=== PATIENT | male | born 1965 | race Caucasian/White ===

== ENCOUNTER 2022-01-01 02:38 | Inpatient (IN) | payer MEDICARE, MEDICAID, SELFPAY ==
[2022-01-01] VITALS (130 sets, daily range): BP systolic 94–144; BP diastolic 56–86; PULSE 63–89; RESP 9–31; TEMP 36.4–37.1; O2SAT 90–98; BMI 34.4; BMI 39.7
--- NOTE | 2022-01-01 | USR_ITS ---
PROCEDURE INFORMATION: Exam: US Duplex Left Lower Extremity Arteries Or Arterial Bypass Grafts Exam date and time: 01/01/2022 9:13 AM Age: 56 years old Clinical indication: Screening exam; Prior surgery; Surgery date: 6+ months; Surgery type: There is a large scar at the location of the patients left mid to distal thigh. Patient HX: Poor history information; Additional info: Check for occlusion TECHNIQUE: Imaging protocol: Left Real-time duplex scan of the arteries or arterial bypass grafts of the left lower extremity with 2-D murray scale, color Doppler flow and spectral waveform analysis. Images documented and saved. Total images: [id number] COMPARISON: [place] [id number] 01/01/2022 8:33 AM FINDINGS: Left common femoral artery: No occlusion or significant stenosis. Normal waveform. Left superficial femoral artery: No occlusion or significant stenosis. Normal waveform. In proximal SFA. Mid SFA with significant decrease in arterial flow by color Doppler with peak systolic velocity measured at 19 cm/s and mono phasic waveform. Distal SFA showing near complete thrombosis of femoral popliteal graft. Graft subsequently becomes occluded distally. [place] SFA not visualized. Left popliteal artery: Distal anastomosis of graft with popliteal artery not well seen. Biphasic waveform demonstrated within popliteal artery with marked elevation of peak systolic velocity of 127 cm/s suggesting reconstitution of popliteal artery through nonvisualized collaterals or recanalized nonvisualized [place] distal SFA and hemodynamically significant stenosis present. Left calf/foot arteries: No occlusion or significant stenosis in the visualized arteries. Monophasic waveforms. Dorsalis pedis artery is patent. US/[place] [id number] IMPRESSION: 1. Occluded left SFA to popliteal artery graft. 2. [place] distal SFA not visualized. 3. Popliteal artery demonstrating biphasic and elevated peak systolic velocity suggesting reconstitution of popliteal artery either through nonvisualized recannulated [place] SFA or collaterals with hemodynamically significant stenosis.
--- NOTE | 2022-01-01 02:42 | ECG_ITS ---
Test Date: 2022-01-01 Pat Name: Casper Tuttle Department: Room: Gender: Male Ring Stamper: : 1965 Requested By: Gary Vazquez Order Number: [id number] Jame MD: Tobi Berger M.D. Measurements Intervals [place] Rate: 73 P: 50 [place]: 201 QRS: 252 QRSD: 182 T: 23 QT: 519 QTc: 573 Interpretive Statements SINUS RHYTHM WITH FREQUENT SUPRAVENTRICULAR PREMATURE COMPLEXES POSSIBLE LEFT ATRIAL ENLARGEMENT [-0.1mV P WAVE IN V1/V2] RIGHT AXIS DEVIATION [QRS AXIS > 100] RIGHT BUNDLE BRANCH BLOCK [120+ ms QRS DURATION, UPRIGHT V1, 40+ ms S IN I/aVL/V4/V5/V6] POSSIBLE ANTERIOR MYOCARDIAL INFARCTION , OF INDETERMINATE AGE [30 ms Q WAVE IN V3/V4, OR R < 0.2 mV IN V4] No previous ECG available for comparison Electronically Signed On 01-01-2022 20:32:29 CDT by Tobi Berger M.D. [email or web address]
--- NOTE | 2022-01-01 02:46 | ED_ITS ---
Documented by User: Gary Vazquez MD 01/15/22 16:38 HPI - SOB/Dyspnea General: Chief Complaint: Shortness of Breath/Dyspnea Stated Complaint: SOB Time Seen by Provider: 01/01/22 02:45 Limitations: altered mental status History of Present Illness: HPI Narrative: Mr. Tuttle is a 56-year-old gentleman with significant past medical history of paranoid schizophrenia, schizoaffective disorder, hypertension, COPD, GERD, unspecified muscular disorder who presents to the emergency department due to respiratory symptoms. Apparently over the past few days patient has had increased shortness of breath and has been attempted to be diuresed however he drinks a lot of water. Last night he was noted to have hypoxemia and difficulty waking with intermittent confusion. He was given an albuterol treatment and [place] six and upon EMS arrival they found the patient in no distress. He did require supplemental oxygen which is possibly normal for him. Patient himself is a somewhat poor historian and somewhat difficult to understand though he is fully oriented. No other specific changes in health, exacerbating, or alleviating factors identified. Review of Systems General: Reports: ROS unobtainable due to mental status PFSH ED PFSH: Medical History (Updated 01/04/22 @ 00:02 by ) COPD (chronic obstructive pulmonary disease) Hypertension Obesity Psychiatric disorder Social History (Updated 01/01/22 @ 06:11 by Harpreet Berry MD) Smoking and tobacco status: current every day smoker Physical Exam Const: COMMON NORMALS: alert GENERAL APPEARANCE: cooperative, well developed and ill appearing HENMT: COMMON NORMALS: normocephalic and atraumatic HEAD & SCALP: normocephalic and atraumatic Eye: COMMON NORMALS: conjunctivae normal CONJUNCTIVA: Yes conjunctivae normal SCLERA: sclerae normal Neck/C-Spine: COMMON NORMALS: supple GENERAL: Yes trachea midline Resp: COMMON NORMALS: normal respiratory effort EFFORT & INSPECTION: Yes able to speak in complete sentences AUSCULTATION: diminished lung sounds Cardio: COMMON NORMALS: regular rate and regular rhythm RATE: regular rate RHYTHM: regular rhythm GI: COMMON NORMALS: Soft to palpation PALPATION: Yes Soft to palpation and No Tenderness to palpation present (GI) Extremity: GENERAL: Yes normal exam except as noted and Yes edema Neuro: COMMON NORMALS: moves all extremities SENSORIUM/ORIENTATION: Yes alert and No Orientation impaired Psych: COMMON NORMALS: mental status grossly normal and Normal thought process present THOUGHT PROCESS: Normal thought process present Course ED course: - Patient was seen and evaluated by me at bedside - Patient placed on cardiac monitors, IV access obtained - Initial evaluation notable for exam as above. No focal neurologic deficits. - Labs and xrays personally interpreted by me. EKG shows sinus rhythm with right bundle branch block - Labs notable for no leukocytosis, intervascular hemoconcentration. Metabolic panel with intravascular dehydration and evidence of metabolic stress likely secondary to overdiuresis. No evidence of urinary tract infection COVID studies negative. - Imaging notable for pulmonary vascular congestion on chest x-ray. Negative head CT. CTA chest with likely interstitial lung disease and pulmonary vascular congestion. - Upon serial reexamination after treatment the patient was similar - Based on patient history, evaluation, and testing as interpreted the most likely cause of the patient's condition is metabolic derangement in the context of overdiuresis with continued evidence of peripheral edema and pulmonary vasc ular congestion. - The results of ED evaluation were discussed with the patient including plan for admission due to requirement for level of care not available if discharged to prevent significant worsening/deterioration. - Admitting service was contacted and Dr Berry with the hospitalist service agreed to admit the patient - Patient was admitted without further deterioration or significant events. Note: Click bubbles or prepopulated prince in note writing are used for assistance with data collection and billing and are inherently more limited than narrative and other text portions of this note. Please use narrative for additional clinical history and defer to narrative/free test for any case of contradictory information. If information appears in only free text or click bubble it should be considered present or absent as reported. Please contact note entry writer for clarifications of clinical information or contradictory information. MDM is a brief summary, contradictory or erroneous seeming information should be clarified and full note should be reviewed. Vital Signs: Vital signs: Vital Signs Temperature 98.5 F 01/03/22 15:20 Pulse Rate 85 01/03/22 15:20 Respiratory Rate 16 01/03/22 15:20 Blood Pressure 116/74 01/03/22 15:20 Pulse Oximetry 89 L 01/03/22 15:20 Oxygen Delivery Nd thod 01/03/22 12:00 Oxygen Flow Rate 4 01/03/22 11:32 Fraction of Inspir ed Oxygen 50 01/02/22 03:15 MDM - SOB/Dyspnea Medical Decision Making 56-year-old gentleman presenting with mental status change and respiratory status change. Patient recently had switch in medications for diuresis and most likely etiology of patient's symptoms is intravascular dehydration with continued evidence of fluid overload. Admitted for further management. I did not participipate in care of pt Medical Records I reviewed the patient's medical records. Lab Data I reviewed the patient's lab results. : 01/03/22 04:28 01/03/22 04:28 Labs/Radiology: Radiology Impressions Duplex Scan Lower Extremity Artery 01/01/22 00:00 IMPRESSION: 1. Occluded left SFA to popliteal artery graft. 2. [place] distal SFA not visualized. 3. Popliteal artery demonstrating biphasic and elevated peak systolic velocity suggesting reconstitution of popliteal artery either through nonvisualized [place] SFA or collaterals with hemodynamically significant stenosis. Chest X-Ray 01/01/22 02:52 IMPRESSION: 1. Indistinct pulmonary vasculature, patchy interstitial opacities in the right hemithorax and left lower hemithorax , findings that may represent pulmonary edema. Patchy interstitial pneumonitis cannot be entirely excluded. 2. There are some strandy opacities present in the lower hemithoraces that may represent atelectasis as well. Head CT 01/01/22 03:19 IMPRESSION: No acute intracranial abnormality. Chest CTA 01/01/22 03:43 IMPRESSION: 1. No lobar or larger pulmonary artery embolism identified. Limited quality examination. 2. Pulmonary vascular congestion. 3. Honeycombing noted posteriorly in the lower lobes and within the upper lobes right greater than left suggesting pulmonary fibrosis. Ground-glass opacity present in these areas may represent atelectasis, edema, and or pneumonia. This later finding is most pronounced in the right upper lobe. Venous Duplex 01/01/22 06:05 IMPRESSION: No evidence of deep vein thrombosis. Laboratory Results WBC 4.6 10^3/uL (4.0-10.0) 01/01/22 02:44 RBC 5.17 10^6/uL (4.1-5.3) 01/01/22 02:44 Hgb 17.4 g/dL (11.7-16.6) H 01/01/22 02:44 Hct 48.8 % (42.0-52.0) 01/01/22 02:44 MCV 94.4 fl (80-94) H 01/01/22 02:44 MCH 33.7 pg (28.0-34.0) 01/01/22 02:44 MCHC 35.7 g/dL (30.0-36.0) 01/01/22 02:44 RDW 14.9 % (12.1-15.1) 01/01/22 02:44 Plt Count 149 10^3/cmm (130-400) 01/01/22 02:44 MPV 9.4 fL (7.4-10.4) 01/01/22 02:44 Neut % (Auto) 62.1 % 01/01/22 02:44 Lymph % (Auto) 19.2 % 01/01/22 02:44 Scott % (Auto) 16.6 % 01/01/22 02:44 Eos % (Auto) 1.5 % 01/01/22 02:44 Baso % (Auto) 0.2 % 01/01/22 02:44 Neut # (Auto) 2.85 10^3/uL (1.8-7.7) 01/01/22 02:44 Lymph # (Auto) 0.9 10^3/uL (0.8-4.8) 01/01/22 02:44 Scott # (Auto) 0.8 10^3/uL (0.2-0.9) 01/01/22 02:44 Eos # (Auto) 0.1 10^3/uL (0.0-0.8) 01/01/22 02:44 Baso # (Auto) 0.0 10^3/uL (0.0-0.1) 01/01/22 02:44 Nucleated RBC % (auto) 0 % 01/01/22 02:44 Nucleated RBCs # 0.0 /100WBC 01/01/22 02:44 Specimen Type Arterial 01/01/22 02:58 Sample Site Radial, left 01/01/22 02:58 ABG pH 7.40 (7.35-7.45) 01/01/22 02:58 ABG pCO2 80.5 mmHg (35-45) H* 01/01/22 02:58 ABG pO2 53.3 mmHg (80.0-100.0) L 01/01/22 02:58 ABG HCO3 50.1 mmol/L (22-26) H 01/01/22 02:58 ABG Base Excess 19.3 mmol/L (-2.0-2.0) H 01/01/22 02:58 Josh Test Pos 01/01/22 02:58 Hematocrit 51.9 % (42-52) 01/01/22 02:58 Hgb O2 Saturation 80.7 % (95-100) L 01/01/22 02:58 Carboxyhemoglobin 7.7 %THgb (0.4-20.1) 01/01/22 02:58 Methemoglobin 0.4 % (0.4-1.5) 01/01/22 02:58 Total Hemoglobin 16.9 g/dL (14-18) 01/01/22 02:58 O2 Delivery Device Nc 01/01/22 02:58 O2 Liters/Min 2.0 % 01/01/22 02:58 Wellness Nurse ID [place] 01/01/22 02:58 Sodium 120 mmol/L (136-145) L 01/01/22 05:05 Potassium 3.1 mmol/L (3.5-5.1) L 01/01/22 02:44 Chloride 69 mmol/L (98-107) L 01/01/22 02:44 Carbon Dioxide 43 mmol/L (22-29) H* 01/01/22 02:44 Anion Gap 10.1 (5-19) 01/01/22 02:44 BUN 9 mg/dL (6-20) 01/01/22 02:44 Creatinine 0.5 mg/dL (0.7-1.2) L 01/01/22 02:44 GFR Calculation 172.0 mL/min (90-130) H 01/01/22 02:44 Glucose 97 mg/dL (65-115) 01/01/22 02:44 Estimat Average Glucose 114 01/01/22 02:44 Hemoglobin A1c 5.6 % (4.0-6.0) 01/01/22 02:44 Calculated Osmolality 247 mOsm/kg (285-295) L 01/01/22 02:44 Lactic Acid 1.2 mmol/L (0.5-2.2) 01/01/22 02:44 Calcium 9.3 mg/dL (8.5-10.5) 01/01/22 02:44 Magnesium 1.6 mg/dL (1.7-2.3) L 01/01/22 02:44 Total Bilirubin 0.7 mg/dL (0.15-1.2) 01/01/22 02:44 AST 104 U/L (0-40) H 01/01/22 02:44 ALT 159 U/L (0-41) H 01/01/22 02:44 Alkaline Phosphatase 86 IU/L (40-130) 01/01/22 02:44 Troponin T Baseline 16 ng/L (0-15) H 01/01/22 02:44 Troponin T 120 Minute 14.26 ng/L (0-15) 01/01/22 05:05 Delta Troponin T -1.74 ABS# (0-10) L 01/01/22 05:05 C-Reactive Protein 5.6 mg/L (0.0-4.9) H 01/01/22 05:05 NT-Pro-B Natriuret Pep 76 pg/mL (0-125) 01/01/22 02:44 Total Protein 7.4 g/dL (6.6-8.7) 01/01/22 02:44 Albumin 4.1 g/dL (3.5-5.2) 01/01/22 02:44 Globulin 3.3 g/dL (1.3-4.6) 01/01/22 02:44 Triglycerides 93 mg/dL (0-150) 01/01/22 05:05 Cholesterol 116 mg/dL (0-200) 01/01/22 05:05 LDL Cholesterol, Calc 61 mg/dL (50-129) 01/01/22 05:05 HDL Cholesterol 36 mg/dL (60-100) L 01/01/22 05:05 LDL/HDL Ratio 1.69 RATIO (0.00-3.22) 01/01/22 05:05 Cholesterol/HDL Ratio 3.22 mg/dL (1.0-5.00) 01/01/22 05:05 Procalcitonin 0.02 ng/mL (0-0.5) 01/01/22 05:05 TSH 1.28 uIU/mL (0.27-4.20) 01/01/22 05:05 Critical Care Time Critical Care Time: Critical Care Time: Yes Total Critical Care Time: 35 Attestation: Due to a high probability of clinically significant, possibly life threatening deterioration, the patient required my highest level of attention and preparedness to intervene emergently and I personally spent this critical care time directly and personally managing the patient. This critical care time included obtaining a history; examining the patient; pulse oximetry; ordering and review of laboratory and imaging studies; arranging urgent treatment with development of a management plan; evaluation of patient's response to treatment; frequent reassessment; and, discussions with other providers as applicable. It was exclusive of separately billable procedures. 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 Documented by User: Olayinka Duran MD 01/05/22 17:25 HPI - SOB/Dyspnea General: Chief Complaint: Shortness of Breath/Dyspnea Stated Complaint: SOB Time Seen by Provider: 01/01/22 02:45 [facility] ED PFSH: Medical History (Updated 01/04/22 @ 00:02 by ) COPD (chronic obstructive pulmonary disease) Hypertension Obesity Psychiatric disorder Social History (Updated 01/01/22 @ 06:11 by Harpreet Berry MD) Smoking and tobacco status: current every day smoker Course Vital Signs: Vital signs: Vital Signs Temperature 98.5 F 01/03/22 15:20 Pulse Rate 85 01/03/22 15:20 Respiratory Rate 16 01/03/22 15:20 Blood Pressure 116/74 01/03/22 15:20 Pulse Oximetry 89 L 01/03/22 15:20 Oxygen Delivery Me thod 01/03/22 12:00 Oxygen Flow Rate 4 01/03/22 11:32 Fraction of Inspir ed Oxygen 50 01/02/22 03:15 MDM - SOB/Dyspnea Medical Decision Making I did not participipate in care of pt Lab Data : 01/03/22 04:28 01/03/22 04:28 Labs/Radiology: Radiology Impressions Duplex Scan Lower Extremity Artery 01/01/22 00:00 IMPRESSION: 1. Occluded left SFA to popliteal artery graft. 2. [place] distal SFA not visualized. 3. Popliteal artery demonstrating biphasic and elevated peak systolic velocity suggesting reconstitution of popliteal artery either through nonvisualized [place] SFA or collaterals with hemodynamically significant stenosis. Chest X-Ray 01/01/22 02:52 IMPRESSION: 1. Indistinct pulmonary vasculature, patchy interstitial opacities in the right hemithorax and left lower hemithorax , findings that may represent pulmonary edema. Patchy interstitial pneumonitis cannot be entirely excluded. 2. There are some [place] opacities present in the lower hemithoraces that may represent atelectasis as well. Head CT 01/01/22 03:19 IMPRESSION: No acute intracranial abnormality. Chest CTA 01/01/22 03:43 IMPRESSION: 1. No lobar or larger pulmonary artery embolism identified. Limited quality examination. 2. Pulmonary vascular congestion. 3. Honeycombing noted posteriorly in the lower lobes and within the upper lobes right greater than left suggesting pulmonary fibrosis. Ground-glass opacity present in these areas may represent atelectasis, edema, and or pneumonia. This later finding is most pronounced in the right upper lobe. Venous Duplex 01/01/22 06:05 IMPRESSION: No evidence of deep vein thrombosis. Laboratory Results WBC 4.6 10^3/uL (4.0-10.0) 01/01/22 02:44 RBC 5.17 10^6/uL (4.1-5.3) 01/01/22 02:44 Hgb 17.4 g/dL (11.7-16.6) H 01/01/22 02:44 Hct 48.8 % (42.0-52.0) 01/01/22 02:44 MCV 94.4 fl (80-94) H 01/01/22 02:44 MCH 33.7 pg (28.0-34.0) 01/01/22 02:44 MCHC 35.7 g/dL (30.0-36.0) 01/01/22 02:44 RDW 14.9 % (12.1-15.1) 01/01/22 02:44 Plt Count 149 10^3/cmm (130-400) 01/01/22 02:44 MPV 9.4 fL (7.4-10.4) 01/01/22 02:44 Neut % (Auto) 62.1 % 01/01/22 02:44 Lymph % (Auto) 19.2 % 01/01/22 02:44 Scott % (Auto) 16.6 % 01/01/22 02:44 Eos % (Auto) 1.5 % 01/01/22 02:44 Baso % (Auto) 0.2 % 01/01/22 02:44 Neut # (Auto) 2.85 10^3/uL (1.8-7.7) 01/01/22 02:44 Lymph # (Auto) 0.9 10^3/uL (0.8-4.8) 01/01/22 02:44 Scott # (Auto) 0.8 10^3/uL (0.2-0.9) 01/01/22 02:44 Eos # (Auto) 0.1 10^3/uL (0.0-0.8) 01/01/22 02:44 Baso # (Auto) 0.0 10^3/uL (0.0-0.1) 01/01/22 02:44 Nucleated RBC % (auto) 0 % 01/01/22 02:44 Nucleated RBCs # 0.0 /100WBC 01/01/22 02:44 Specimen Type Arterial 01/01/22 02:58 Sample Site Radial, left 01/01/22 02:58 ABG pH 7.40 (7.35-7.45) 01/01/22 02:58 ABG pCO2 80.5 mmHg (35-45) H* 01/01/22 02:58 ABG pO2 53.3 mmHg (80.0-100.0) L 01/01/22 02:58 ABG HCO3 50.1 mmol/L (22-26) H 01/01/22 02:58 ABG Base Excess 19.3 mmol/L (-2.0-2.0) H 01/01/22 02:58 Josh Test Pos 01/01/22 02:58 Hematocrit 51.9 % (42-52) 01/01/22 02:58 Hgb O2 Saturation 80.7 % (95-100) L 01/01/22 02:58 Carboxyhemoglobin 7.7 %THgb (0.4-20.1) 01/01/22 02:58 Methemoglobin 0.4 % (0.4-1.5) 01/01/22 02:58 Total Hemoglobin 16.9 g/dL (14-18) 01/01/22 02:58 O2 Delivery Device Nc 01/01/22 02:58 O2 Liters/Min 2.0 % 01/01/22 02:58 Wellness Nurse ID [place] 01/01/22 02:58 Sodium 120 mmol/L (136-145) L 01/01/22 05:05 Potassium 3.1 mmol/L (3.5-5.1) L 01/01/22 02:44 Chloride 69 mmol/L (98-107) L 01/01/22 02:44 Carbon Dioxide 43 mmol/L (22-29) H* 01/01/22 02:44 Anion Gap 10.1 (5-19) 01/01/22 02:44 BUN 9 mg/dL (6-20) 01/01/22 02:44 Creatinine 0.5 mg/dL (0.7-1.2) L 01/01/22 02:44 GFR Calculation 172.0 mL/min (90-130) H 01/01/22 02:44 Glucose 97 mg/dL (65-115) 01/01/22 02:44 Estimat Average Glucose 114 01/01/22 02:44 Hemoglobin A1c 5.6 % (4.0-6.0) 01/01/22 02:44 Calculated Osmolality 247 mOsm/kg (285-295) L 01/01/22 02:44 Lactic Acid 1.2 mmol/L (0.5-2.2) 01/01/22 02:44 Calcium 9.3 mg/dL (8.5-10.5) 01/01/22 02:44 Magnesium 1.6 mg/dL (1.7-2.3) L 01/01/22 02:44 Total Bilirubin 0.7 mg/dL (0.15-1.2) 01/01/22 02:44 AST 104 U/L (0-40) H 01/01/22 02:44 ALT 159 U/L (0-41) H 01/01/22 02:44 Alkaline Phosphatase 86 IU/L (40-130) 01/01/22 02:44 Troponin T Baseline 16 ng/L (0-15) H 01/01/22 02:44 Troponin T 120 Minute 14.26 ng/L (0-15) 01/01/22 05:05 Delta Troponin T -1.74 ABS# (0-10) L 01/01/22 05:05 C-Reactive Protein 5.6 mg/L (0.0-4.9) H 01/01/22 05:05 NT-Pro-B Natriuret Pep 76 pg/mL (0-125) 01/01/22 02:44 Total Protein 7.4 g/dL (6.6-8.7) 01/01/22 02:44 Albumin 4.1 g/dL (3.5-5.2) 01/01/22 02:44 Globulin 3.3 g/dL (1.3-4.6) 01/01/22 02:44 Triglycerides 93 mg/dL (0-150) 01/01/22 05:05 Cholesterol 116 mg/dL (0-200) 01/01/22 05:05 LDL Cholesterol, Calc 61 mg/dL (50-129) 01/01/22 05:05 HDL Cholesterol 36 mg/dL (60-100) L 01/01/22 05:05 LDL/HDL Ratio 1.69 RATIO (0.00-3.22) 01/01/22 05:05 Cholesterol/HDL Ratio 3.22 mg/dL (1.0-5.00) 01/01/22 05:05 Procalcitonin 0.02 ng/mL (0-0.5) 01/01/22 05:05 TSH 1.28 uIU/mL (0.27-4.20) 01/01/22 05:05 Discharge Plan Discharge Patient Disposition: Admitted As Inpatient Admit Provider: Harpreet Berry Clinical Impression: Hyponatremia, Edema, peripheral, Acute on chronic respiratory failure with hypoxia and hypercapnia Condition: Stable Discharge Diet: Cardiac Discharge Activity: Increase activity as tolerated Coding Level of Care Code 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
--- NOTE | 2022-01-01 02:52 | XRR_ITS ---
PROCEDURE INFORMATION: Exam: XR Chest Exam date and time: 01/01/2022 2:56 AM Age: 56 years old Clinical indication: Shortness of breath; Patient HX: C/O SOB with hypoxia on monitor. History of copd. TECHNIQUE: Imaging protocol: Radiologic exam of the chest. Views: 1 view. COMPARISON: No relevant prior studies available. FINDINGS: Lungs: There is indistinctness of the pulmonary vasculature and increased interstitial opacities present within the hemithoraces most prominently within the right hemithorax and left lower hemithorax. Mild peribronchial cuffing is seen. Some strandy opacities are seen in the lower hemithoraces bilaterally, left more prominent than right. Pleural spaces: Unremarkable. No pleural effusion. No pneumothorax. Heart/Mediastinum: Unremarkable. No cardiomegaly. Bones/joints: Unremarkable. XR/XR chest 1V portable [id number] IMPRESSION: 1. Indistinct pulmonary vasculature, patchy interstitial opacities in the right hemithorax and left lower hemithorax , findings that may represent pulmonary edema. Patchy interstitial pneumonitis cannot be entirely excluded. 2. There are some strandy opacities present in the lower hemithoraces that may represent atelectasis as well.
[2022-01-01 03:00] LABS: Basophils % 0.2 %; Eosinophils # 0.1 10^3/uL (0.0-0.8); Eosinophils % 1.5 %; Hematocrit 48.8 % (42.0-52.0); Hemoglobin 17.4 g/dL (11.7-16.6); Lymphocytes # 0.9 10^3/uL (0.8-4.8); Lymphocytes % 19.2 %; Mean Corpuscular HGB Conc 35.7 g/dL (30.0-36.0); Mean Corpuscular Hemoglobin 33.7 pg (28.0-34.0); Mean Corpuscular Volume 94.4 fl (80-94); Mean Platelet Volume 9.4 fL (7.4-10.4); Monocytes # 0.8 10^3/uL (0.2-0.9); Monocytes % 16.6 %; Neutrophils # 2.85 10^3/uL (1.8-7.7); Neutrophils % 62.1 %; Nucleated Red Blood Cells % 0 %; Platelet Count 149 10^3/cmm (130-400); Red Blood Count 5.17 10^6/uL (4.1-5.3); Red Cell Distribution Width 14.9 % (12.1-15.1); White Blood Count 4.6 10^3/uL (4.0-10.0)
[2022-01-01 03:08] LABS: Arterial Blood Gas Hematocrit 51.9 % (42-52); Base Excess ABG 19.3 mmol/L (-2.0-2.0); Blood Gas Allen Test Pos; Blood Gas Operator Identificat WALCI; Blood Gas Sample Site Radial, left; Blood Gas Sample Type Arterial; Carboxyhemoglobin 7.7 %THgb (0.4-20.1); HCO3 ABG 50.1 mmol/L (22-26); HGB O2 Sat 80.7 % (95-100); Methemoglobin 0.4 % (0.4-1.5); Oxygen Device NC; PO2 ABG 53.3 mmHg (80.0-100.0); Total Hemoglobin 16.9 g/dL (14-18)
[2022-01-01 03:13] LABS: Lactic Sepsis W/Reflex 1.2 mmol/L (0.5-2.2)
[2022-01-01 03:14] LABS: Troponin(5th) Baseline 16 ng/L (0-15)
[2022-01-01 03:18] LABS: Slide Review Slide Review Perform
[2022-01-01 03:19] LABS: Alanine Aminotransferase 159 U/L (0-41); Albumin Level 4.1 g/dL (3.5-5.2); Alkaline Phosphatase 86 IU/L (40-130); Anion Gap 10.1 (5-19); Aspartate Amino Transferase 104 U/L (0-40); Blood Urea Nitrogen 9 mg/dL (6-20); Calcium 9.3 mg/dL (8.5-10.5); Chloride 69 mmol/L (98-107); Globulin 3.3 g/dL (1.3-4.6); Glucose 97 mg/dL (65-115); Osmolality Calculated 247 mOsm/kg (285-295); Potassium 3.1 mmol/L (3.5-5.1); Total Bilirubin 0.7 mg/dL (0.15-1.2); Total Protein 7.4 g/dL (6.6-8.7)
--- NOTE | 2022-01-01 03:19 | CTR_ITS ---
PROCEDURE INFORMATION: Exam: CT Head Without Contrast Exam date and time: 01/01/2022 3:54 AM Age: 56 years old Clinical indication: Altered mental status/memory loss; Patient HX: Severe lethargy. Decreased sodium. Unable to obtain further history from patient. ; Additional info: AMS TECHNIQUE: Imaging protocol: Computed tomography of the head without contrast. Radiation optimization: All CT scans at this facility use at least one of these dose optimization techniques: automated exposure control; mA and/or kV adjustment per patient size (includes targeted exams where dose is matched to clinical indication); or iterative reconstruction. COMPARISON: No relevant prior studies available. RADIATION DOSE METRICS: Total DLP (mGy-cm): 1203.98 FINDINGS: Brain: Normal. No hemorrhage. Unremarkable white matter. No mass effect. Cerebral ventricles: No ventriculomegaly. Paranasal sinuses: Visualized sinuses are unremarkable. No fluid levels. Mastoid air cells: Visualized mastoid air cells are well aerated. Bones/joints: Unremarkable. No acute fracture. Soft tissues: Unremarkable. CT/CT head wo con* [id number] IMPRESSION: No acute intracranial abnormality.
[2022-01-01 03:20] LABS: Carbon Dioxide 43 mmol/L (22-29); Sodium 119 mmol/L (136-145)
[2022-01-01 03:23] LABS: NT Pro B Type Natriuretic Pept 76 pg/mL (0-125)
[2022-01-01 03:33] LABS: Magnesium 1.6 mg/dL (1.7-2.3)
--- NOTE | 2022-01-01 03:43 | CTR_ITS ---
PROCEDURE INFORMATION: Exam: CTA Chest With Contrast Exam date and time: 01/01/2022 4:03 AM Age: 56 years old Clinical indication: Abnormal findings; Abnormal diagnostic tests; Abnormal wbc; Shortness of breath; Patient HX: SOB with hypoxia on monitor. Pc02 of 80.5. History of copd. Patient very lethargic. Unable to obtain further history. ; Additional info: SOB, new oxygen req, limited mobility TECHNIQUE: Imaging protocol: Computed tomographic angiography of the chest with contrast. 3D rendering (Not supervised by radiologist): MIP and/or 3D reconstructed images were created by the technologist. Total images: 133 Radiation optimization: All CT scans at this facility use at least one of these dose optimization techniques: automated exposure control; mA and/or kV adjustment per patient size (includes targeted exams where dose is matched to clinical indication); or iterative reconstruction. Contrast material: OMNI 350; Contrast volume: 173.2 ml; Contrast route: INTRAVENOUS (IV); COMPARISON: CR (CHEST, ) 01/01/2022 2:56 AM RADIATION DOSE METRICS: Total DLP (mGy-cm): 1501.31 FINDINGS: Pulmonary arteries: Pulmonary artery evaluation of fair technical quality but no pulmonary artery embolism identified. Pulmonary vascular congestion. Aorta: Unremarkable. No aortic aneurysm. No aortic dissection. Other arteries: Mild atherosclerotic disease is evident. Lungs: Honeycombing noted posteriorly in the lower lobes and within the upper lobes right greater than left suggesting pulmonary fibrosis. Ground-glass opacity present in these areas may represent atelectasis, edema, and or pneumonia. This later finding is most pronounced in the right upper lobe. Pleural spaces: Unremarkable. No pneumothorax. No pleural effusion. Heart: There is moderate coronary arterial calcification present. Lymph nodes: Unremarkable. No enlarged lymph nodes. Bones/joints: Old rib fractures are evident. Soft tissues: Unremarkable. CT/CT angio chest PE protcl [id number] IMPRESSION: 1. No lobar or larger pulmonary artery embolism identified. Limited quality examination. 2. Pulmonary vascular congestion. 3. Honeycombing noted posteriorly in the lower lobes and within the upper lobes right greater than left suggesting pulmonary fibrosis. Ground-glass opacity present in these areas may represent atelectasis, edema, and or pneumonia. This later finding is most pronounced in the right upper lobe.
[2022-01-01] MEDS: lidocaine 1% 5 ML in potassium chloride premix 100 ML 25 ML IV (04:24)
--- NOTE | 2022-01-01 04:45 | ECG_ITS ---
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 Measurements Intervals [place] Rate: 69 P: 59 AK: 190 QRS: -86 QRSD: 193 T: 29 QT: 470 QTc: 507 Interpretive Statements SINUS RHYTHM WITH OCCASIONAL SUPRAVENTRICULAR PREMATURE COMPLEXES LEFT AXIS DEVIATION [QRS AXIS < -30] RIGHT BUNDLE BRANCH BLOCK [120+ ms QRS DURATION, UPRIGHT V1, 40+ ms S IN I/aVL/V4/V5/V6] Compared to ECG 01/01/2022 02:42:44 Left-axis deviation now present Right-axis deviation no longer present Myocardial infarct finding no longer present Electronically Signed On 01-01-2022 20:34:02 CDT by Tobi Berger M.D. [id number]
[2022-01-01 05:31] LABS: Troponin 5 2HR 14.26 ng/L (0-15); Troponin 5 2HR Delta -1.74 ABS# (0-10)
[2022-01-01] MEDS: magnesium sulfate premix 2 GM/50 ML PIGGYBACK IV (06:04)
--- NOTE | 2022-01-01 06:05 | USR_ITS ---
PROCEDURE INFORMATION: Exam: US Duplex Lower Extremity Veins, Bilateral Exam date and time: 01/01/2022 8:33 AM Age: 56 years old Clinical indication: Screening exam; Order says dvt; Additional info: Dvt, patient is currently being transferred to icu. Will scan patient once he is TECHNIQUE: Imaging protocol: Real-time Duplex ultrasound of the bilateral extremities with 2-D murray scale, color Doppler flow and spectral waveform analysis with image documentation. Complete exam focused on the bilateral lower extremity veins. Total images: 1 COMPARISON: No relevant prior studies available. FINDINGS: Right deep veins: Unremarkable. The common femoral, femoral, proximal profunda femoral and popliteal veins are patent without thrombus. Normal Doppler waveforms. Normal compressibility and/or augmentation response. Right superficial veins: Saphenofemoral junction is patent without thrombus. Left deep veins: Unremarkable. The common femoral, femoral, proximal profunda femoral and popliteal veins are patent without thrombus. Normal Doppler waveforms. Normal compressibility and/or augmentation response. Left superficial veins: Saphenofemoral junction is patent without thrombus. Soft tissues: Subcutaneous edema in calf. US/[place] [id number] IMPRESSION: No evidence of deep vein thrombosis.
--- NOTE | 2022-01-01 06:05 | USCV_ITS ---
Casper Tuttle Age: 56 Gender: M : 1965 Exam Date: 01/01/2022 09:49 Ordering Phys: Harpreet Berry MD Technologist: Yogesh Valentine Exam Location: [facility] Indication: sob BP: 112 / 61 HR: Rhythm: Sinus Technical Quality: Very technically difficult study MEASUREMENTS (Male / Female) Normal Values 2D ECHO LVOT Diameter 2.1 cm LA Diameter 3.2 cm Aorta at Sinotubular Diameter 2.6 cm IVC Diameter 2.5 cm M-MODE Aortic Annulus Diameter 3.5 cm LA Ao Ratio MM 0.9 DOPPLER Right Atrial Pressure 8.0 mmHg FINDINGS Left Ventricle Right Ventricle Right Atrium Left Atrium Mitral Valve Aortic Valve Tricuspid Valve Pulmonic Valve Pericardium Aorta IVC CONCLUSIONS Technically very limited quality echocardiogram because of poor ultrasonic windows. LV systolic function is normal with EF of 55 to 60%. No regional wall motion abnormalities are seen. Valves are not well visualized No comparison studies are available Tobi Berger MD (Electronically Signed) Final Date: 01 January 2022 12:03 S
[2022-01-01 07:10] LABS: Arterial Blood Gas Hematocrit 52.7 % (42-52); Base Excess ABG 19.6 mmol/L (-2.0-2.0); Blood Gas Allen Test Pos; Blood Gas Operator Identificat CAK; Blood Gas Sample Site Radial, right; Blood Gas Sample Type Arterial; HCO3 ABG 50.5 mmol/L (22-26); Oxygen Device BIPAP
[2022-01-01 07:12] LABS: ABG PCO2 80.5 mmHg (35-45)
[2022-01-01 07:12] LABS: ABG PCO2 80.7 mmHg (35-45)
[2022-01-01 07:33] LABS: Sodium 120 mmol/L (136-145)
--- NOTE | 2022-01-01 07:55 | ECG_ITS ---
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 Measurements Intervals [place] Rate: 73 P: 63 [place]: 182 QRS: -79 QRSD: 182 T: 74 QT: 451 QTc: 499 Interpretive Statements SINUS RHYTHM RIGHT BUNDLE BRANCH BLOCK [120+ ms QRS DURATION, UPRIGHT V1, 40+ ms S IN I/aVL/V4/V5/V6] LEFT ANTERIOR FASCICULAR BLOCK [QRS AXIS <= -45, QR IN I, RS IN II] Compared to ECG 01/01/2022 04:45:18 Left anterior fascicular block now present Left-axis deviation no longer present Electronically Signed On 01-01-2022 20:33:31 CDT by Tobi Berger M.D. [id number]
[2022-01-01 07:58] LABS: Procalcitonin 0.02 ng/mL (0-0.5)
[2022-01-01] MEDS: budesonide 0.5 mg/2 mL Neb INHALATION ×2 (08:04→19:58)
[2022-01-01] MEDS: ipratropium-albuterol 3 mL Neb INHALATION ×5 (08:04→23:23)
--- NOTE | 2022-01-01 08:07 | PC.NURSE ---
Nurse received patient from ER staff. HR: 69, SPO2:93% on 3L NC, BP 128/77, RR 16. Patient can answer person, place, time, and situation questions correctly, and follow commands, but is very lethargic and difficult to rouse. RT Set up and connected patient to Bipap upon arrival.
[2022-01-01] MEDS: piperacillin-tazobactam 3.375 GM in sodium chloride 0.9% (plus) 50 ML IV ×3 (08:13→23:49)
[2022-01-01] MEDS: pantoprazole 40 mg SDV IVP (08:19)
[2022-01-01] MEDS: enoxaparin 40 mg/0.4 mL Syringe SUBCUT (08:21)
[2022-01-01 08:40] LABS: C Reactive Protein 5.6 mg/L (0.0-4.9); Chol HDL Ratio 3.22 mg/dL (1.0-5.00); Cholesterol 116 mg/dL (0-200); HDL Cholesterol 36 mg/dL (60-100); LDL Cholesterol Calculated 61 mg/dL (50-129); LDL HDL Ratio 1.69 RATIO (0.00-3.22); Thyroid Stimulating Hormone 1.28 uIU/mL (0.27-4.20); Triglycerides 93 mg/dL (0-150)
[2022-01-01 08:41] LABS: Add Urine Microscopic? NO; Charge for UA Resulting for Rev
[2022-01-01 08:51] LABS: Estmated Average Glucose 114; Hemoglobin A1C 5.6 % (4.0-6.0)
--- NOTE | 2022-01-01 08:51 | PC.NURSE ---
[facility] called for an update on patient. During conversation, they stated that he refuses to wear bipap at night and his baseline is to require sternal rubs to wake up.
[2022-01-01 09:00] LABS: Bilirubin Urine Neg (Negative); Blood Urine Neg (Negative); Glucose Urine UA Norm (Normal); Ketones Urine Negative (Negative); Leukocyte Esterase Urine Negative (Negative); Nitrate Urine Negative (Negative); Protein Urine Neg (Negative); Specific Gravity, Urine 1.005 (1.005-1.030); Urine Appearance Clear (CLEAR); Urine Color Straw (Yellow); Urobilinogen Urine Norm (Negative); pH Urine 6.5 (5-7)
[2022-01-01 09:04] LABS: INR 0.91 (0.8-1.2)
[2022-01-01 09:19] LABS: Troponin 5 6HR 16.62 ng/L (0-15)
[2022-01-01 09:32] LABS: Troponin 5 6HR Delta 0.62 ng/L (0-12)
--- NOTE | 2022-01-01 09:36 | PC.NURSE ---
Patient scored a 14 on the NIHSS. Patient is hyponatremic, and hypercapenic, lethargic, and has difficulty staying awake long enough to follow directions for the stroke scale. Nurse alerted Dr saba.
[2022-01-01 10:59] LABS: Glucose Point of Care 88 mg/dL (70-110)
[2022-01-01 12:22] LABS: Ammonia 43 umol/L (16-60)
[2022-01-01 12:36] LABS: Sodium 124 mmol/L (136-145)
--- NOTE | 2022-01-01 13:00 | PM.HP ---
Providers/Chief Complaint Primary Care Provider: Theodore Navas MD Chief Complaint: SOB History of Present Illness Casper Tuttle is a 56 year old male past medical history of COPD, current smoker, history of paranoid schizophrenia, major depressive disorder, hypertension, asthma, chronic back pain, anxiety, GERD who presents [facility] for [facility] due to concerns for confusion, oxygen requirements, shortness of breath. Currently patient is alert to person, to place, not to time, at times is difficult to arouse and falls back asleep, he tells me that he feels short of breath, that he is cold, he is able to squeeze my fingers, but falls back asleep. Currently on BiPAP, 40% FiO2 his O2 sats in the mid 90s, normotensive blood pressure 160/72, pulse 67, respiratory rate 18. I spoke to nursing at [facility], he was recently a resident there since October, according to detention, he is on Bumex, yesterday he started develop lower extremity edema, and new oxygen requirements of 3 L, at times he was also difficult to arouse, so they put him on Lasix, he got 40 mg of Lasix in addition to his Bumex. His symptoms persisted throughout the day, and then overnight his O2 sats again dropped, was 1 maintained on 3 L at times and again difficult to arouse, but eventually was arousable after a course of albuterol. He continues to smoke at a nursing facility, has a history of COPD, no documented fevers. Review of Systems General: Reports: ROS unobtainable due to mental status Medications/Allergies Allergies Allergy/AdvReac Type Severity Reaction Status Date / Time No Known Allergies Allergy Verified 01/01/22 03:42 PFSH Acute PFSH: Medical History (Updated 01/01/22 @ 06:15 by Harpreet Berry MD) COPD (chronic obstructive pulmonary disease) Hypertension Obesity Psychiatric disorder Social History (Updated 01/01/22 @ 06:11 by Harpreet Berry MD) Smoking and tobacco status: current every day smoker Vitals/I&O/Wt Last Vital Signs Temp 97.6 F 01/01/22 02:42 Pulse 67 01/01/22 05:36 Resp 18 01/01/22 04:24 BP 116/72 01/01/22 04:24 Pulse Ox 94 01/01/22 05:36 O2 Del Method 01/01/22 04:24 O2 Flow Rate 3 01/01/22 02:42 FiO2 45 01/01/22 05:36 Weight last 48 hrs Weight 108.862 kg Physical Exam Const: COMMON NORMALS: no acute distress HENMT: COMMON NORMALS: normocephalic HEAD & SCALP: normocephalic Neck/C-Spine: COMMON NORMALS: no JVD Resp: COMMON NORMALS: normal respiratory effort, No retractions, No use of accessory muscles and clear to auscultation bilaterally AUSCULTATION: clear to auscultation bilaterally Cardio: COMMON NORMALS: no JVD, regular rate, regular rhythm, S1 normal heart sound present and S2 normal heart sound present RATE: regular rate RHYTHM: regular rhythm HEART SOUNDS: S1 normal heart sound present and S2 normal heart sound present GI: COMMON NORMALS: Normal to inspection, nondistended, normoactive bowel sounds present, Soft to palpation, non-tender, No hepatosplenomegaly present, no masses and no bruits PALPATION: Yes Soft to palpation and Yes No hepatosplenomegaly present Extremity: NARRATIVE EXTREMITY EXAM: Has 1+ nonpitting edema bilateral lower extremities Neuro: OTHER: Arouses, can follow commands such as squeezing my finger, but falls back asleep Psych: COMMON NORMALS: mental status grossly normal Data : 01/01/22 02:44 01/01/22 02:44 Micro: Microbiology 01/01/22 03:00 Blood Culture - Preliminary Blood SPECIMEN COLLECTED 01/01/22 03:30 Blood Culture - Preliminary Blood SPECIMEN COLLECTED A&P Assessment and plan (1) Acute metabolic encephalopathy: Status: Acute (2) Hyponatremia: Status: Acute (3) Acute on chronic respiratory failure with hypoxia and hypercapnia: Status: Acute (4) COPD (chronic obstructive pulmonary disease): Status: Acute (5) Obesity: Status: Acute (6) Hypertension: Status: Acute (7) Congestive heart failure: Status: Acute (8) Aspiration pneumonia: Status: Acute Plan Acute metabolic encephalopathy -Likely multifactorial -From hypercarbia, COPD -From hyponatremia, secondary to diuresis -Continue to monitor mentation, neurochecks, aspiration precautions -Full code -Lovenox DVT chemoprophylaxis -Urine culture pending Hyponatremia -Likely secondary to diuresis other possibility include diastolic CHF -Patient was taking Bumex 2.5 mg twice daily at baseline for presumed diastolic CHF -However given his increased oxygen requirements, his pitting edema, he was given Lasix 40 mg twice -For now hold diuresis -Monitor serum sodium every 4 hours -Repeat serum sodium pending, if sodium does not improve, will consider hypertonic saline -Admit to ICU Acute hypercarbic respiratory failure -Continue BiPAP -Likely secondary COPD -Not acutely wheezing -DuoNeb -Budesonide -Does have evidence of aspiration pneumonia on CT, will start him on Zosyn -Monitor respiratory status closely Aspiration pneumonia, continue Zosyn, blood cultures and sputum cultures Evidence of fluid overload, bilateral nonpitting edema -He has a normal BNP -CT angio does not show pulmonary embolism, but does show pulmonary vascular congestion -Was on 3 L before -We will hold off on further Lasix given sodium as above -We will do venous ultrasound for DVT History of paranoid schizophrenia, on Invega, Zyprexa hold History of chronic pain, on gabapentin, baclofen, naproxen, hold Attestations Medical Necessity Statement*: Patient requires hospitalization, inpatient, greater than 2 midnights, for acute metabolic encephalopathy, hyponatremia, Coding Level of Care Code Acute Visual Coordinator for [facility] Diagnoses Acute metabolic encephalopathy G93.41 Hyponatremia E87.1 Acute on chronic respiratory failure with hypoxia and hypercapnia J96.21; J96.22 COPD (chronic obstructive pulmonary disease) J44.9 Obesity E66.9 Hypertension I10 Congestive heart failure I50.9 Aspiration pneumonia J69.0
[2022-01-01 13:20] LABS: Adenovirus Not Detected (NOT DETECT); Chlamydia Pneumoniae Not Detected (NOT DETECT); Coronavirus 229E,HKU1,NL63,OC4 Not Detected (NOT DETECT); Human Metapneumovirus Not Detected (NOT DETECT); Human Rhinovirus/Enterovirus Not Detected (NOT DETECT); Influenza A Not Detected (NOT DETECT); Influenza A H1 Not Detected (NOT DETECT); Influenza A H1-2009 Not Detected (NOT DETECT); Influenza A H3 Not Detected (NOT DETECT); Influenza B Not Detected (NOT DETECT); Mycoplasma Pneumoniae Not Detected (NOT DETECT); Parainfluenza Virus Type 1 Not Detected (NOT DETECT); Parainfluenza Virus Type 2 Not Detected (NOT DETECT); Parainfluenza Virus Type 3 Not Detected (NOT DETECT); Parainfluenza Virus Type 4 Not Detected (NOT DETECT); Respiratory Syncytial Virus A Not Detected (NOT DETECT); Respiratory Syncytial Virus B Not Detected (NOT DETECT); SARS-COV-2 Not Detected (NOT DETECT)
[2022-01-01] MEDS: acetaminophen 325 mg Tablet 650 MG PO ×2 (13:52→21:00)
--- NOTE | 2022-01-01 13:59 | PC.NURSE ---
Patient reports pain, 7/10 to lower back and left knee. States that at the alf he takes tylenol for it and it is effective. Nurse administered prn tylenol.
[2022-01-01 14:52] LABS: ABG PCO2 70.5 mmHg (35-45); ABG PH Result 7.46 (7.35-7.45); Alveolar-Arterial Oxygen Gradi 18.1 mmHg (5-10); Arterial Blood Gas Hematocrit 53.4 % (42-52); Base Excess ABG 20.5 mmol/L (-2.0-2.0); Blood Gas Allen Test Pos; Blood Gas Operator Identificat CAAK; Blood Gas Sample Site Radial, left; Blood Gas Sample Type Arterial; Carboxyhemoglobin 4.4 %THgb (0.4-20.1); HGB O2 Sat 88.6 % (95-100); Ionized Calcium Level - ABG 1.1 mmol/L (1.1-1.4); Methemoglobin 0.5 % (0.4-1.5); Oxygen Device BIPAP; Oxygen Saturation ABG 93.3; PO2 ABG 62.6 mmHg (80.0-100.0); Potassium Level - ABG 3.1 mmol/L (3.5-5.0); Total Hemoglobin 17.4 g/dL (14-18)
--- NOTE | 2022-01-01 14:52 | PC.NURSE ---
nurse valderrama informed
[2022-01-01 15:17] LABS: Sodium 124 mmol/L (136-145)
[2022-01-01] MEDS: gabapentin 100 mg Capsule 200 MG PO (15:40)
--- NOTE | 2022-01-01 18:08 | PC.NURSE ---
Patient reported to nurse that he is hearing voices. stated that he knows he is schizophrenic and the voices aren't real, but he sometimes still hs trouble knowing what is real. The voices are telling him that he has , or that he is freezing or that he is overheating. Patient denies that voices are telling him to harm himself or others. Nurse has alerted Dr saba. Patient's olanzapine has been restarted starting tonight.
--- NOTE | 2022-01-01 18:25 | PC.NURSE ---
Shift Summary: Overall uneventful shift. Patient's mental status was variable in the beginning of the shift ranging from confused to unresponsive, but has improved throughout the day. For the last 4.5 hours of shift he has been awake and alert. Can answer all orientation questions correctly, but is still confused. He reports auditory and visual hallucinations which he knows are not real. Sodium levels and PCO2 levels have shown some improvement today. Some of his home medications have been restarted and he has been started on a cardiac diet. Urine output for the day has been 2800.
[2022-01-01 19:26] LABS: Sodium 123 mmol/L (136-145)
--- NOTE | 2022-01-01 19:47 | PC.NURSE ---
Patient is very lethargic. Will open eyes to painful stimuli but will not participate in assessment. Does not answer questions or follow directions. He was doing this at shift change. Placed patient back on BIPAP.
[2022-01-01] MEDS: OLANZapine 5 mg TABLET PO (21:00)
[2022-01-01] MEDS: baclofen 10 mg Tablet PO (21:00)
--- NOTE | 2022-01-01 21:08 | PC.NURSE ---
After wearing his BIPAP for an hour and half patient is alert and oriented. Making notes on paper about the medications he is taking. He is able to hold a conversation, and is now refusing his BIPAP. He states it hurts his head. Encouraged him to wear the BIPAP.
[2022-01-02] VITALS (89 sets, daily range): BP systolic 100–160; BP diastolic 62–94; PULSE 64–92; RESP 12–41; TEMP 36.9–37.2; O2SAT 84–98
[2022-01-02] MEDS: ipratropium-albuterol 3 mL Neb INHALATION ×5 (03:15→21:42)
[2022-01-02] MEDS: acetaminophen 325 mg Tablet 650 MG PO ×3 (03:56→20:37)
[2022-01-02 06:48] LABS: Basophils % 0.2 %; Eosinophils % 0.6 %; Hematocrit 46.5 % (42.0-52.0); Hemoglobin 15.9 g/dL (11.7-16.6); Lymphocytes # 0.7 10^3/uL (0.8-4.8); Lymphocytes % 12.6 %; Mean Corpuscular HGB Conc 34.2 g/dL (30.0-36.0); Mean Corpuscular Hemoglobin 33.3 pg (28.0-34.0); Mean Corpuscular Volume 97.5 fl (80-94); Mean Platelet Volume 9.2 fL (7.4-10.4); Monocytes # 0.8 10^3/uL (0.2-0.9); Neutrophils # 3.81 10^3/uL (1.8-7.7); Neutrophils % 71.4 %; Nucleated Red Blood Cells % 0 %; Platelet Count 164 10^3/cmm (130-400); Red Blood Count 4.77 10^6/uL (4.1-5.3); Red Cell Distribution Width 15.8 % (12.1-15.1); White Blood Count 5.3 10^3/uL (4.0-10.0)
[2022-01-02 07:38] LABS: Alanine Aminotransferase 181 U/L (0-41); Albumin Level 3.7 g/dL (3.5-5.2); Alkaline Phosphatase 73 IU/L (40-130); Aspartate Amino Transferase 112 U/L (0-40); Blood Urea Nitrogen 8 mg/dL (6-20); Calcium 9.2 mg/dL (8.5-10.5); Chloride 74 mmol/L (98-107); Globulin 3.1 g/dL (1.3-4.6); Glomerular Filtration Rate 139.4 mL/min (90-130); Glucose 94 mg/dL (65-115); NT Pro B Type Natriuretic Pept 32 pg/mL (0-125); Osmolality Calculated 256 mOsm/kg (285-295); Phosphorus 3.5 mg/dL (2.5-4.5); Sodium 124 mmol/L (136-145); Total Bilirubin 0.7 mg/dL (0.15-1.2); Total Protein 6.8 g/dL (6.6-8.7)
[2022-01-02] MEDS: budesonide 0.5 mg/2 mL Neb INHALATION ×2 (07:40→21:42)
[2022-01-02] MEDS: piperacillin-tazobactam 3.375 GM in sodium chloride 0.9% (plus) 50 ML IV (08:01)
[2022-01-02] MEDS: enoxaparin 40 mg/0.4 mL Syringe SUBCUT (08:02)
[2022-01-02] MEDS: pantoprazole 40 mg SDV IVP (08:02)
[2022-01-02 08:09] LABS: Carbon Dioxide 44 mmol/L (22-29)
[2022-01-02] MEDS: gabapentin 100 mg Capsule 200 MG PO ×2 (08:17→13:20)
[2022-01-02] MEDS: divalproex DR 500 mg Tablet PO ×2 (09:32→16:56)
--- NOTE | 2022-01-02 12:04 | PM.PN ---
Subjective Subjective: Patient is alert and awake today. He is oriented x2 which is his baseline. Patient has known schizophrenia for which he is currently in a snf and has a legal guardian. He exhibits some paranoia today. For instance he is looking at hematomas on his arm from IV sites and telling me that he wants all test done to a certain what this is etc. He understands that he is in a hospital, understands that he needs to be here because of breathing trouble etc. T-max 99 Fahrenheit. Medications: Reviewed: Yes Vitals/I&O/Wt Last Vital Signs Temp 99.0 F 01/02/22 07:30 Pulse 82 01/02/22 11:14 Resp 16 01/02/22 11:14 BP 134/87 01/02/22 08:45 Pulse Ox 92 01/02/22 11:14 O2 Del Method 01/02/22 11:14 O2 Flow Rate 3.5 01/02/22 11:14 FiO2 50 01/02/22 03:15 01/01/22 01/02/22 01/02/22 22:59 06:59 14:59 Intake Total 1430 / 1635 50 / 1685 702 / 702 Output Total 550 / 2800 1850 / 4650 Balance 880 / -1165 -1800 / -2965 702 / 702 Weight last 48 hrs Weight 125.645 kg Weight 108.862 kg Physical Exam Narrative: General: No acute distress, completely alert, oriented x2 HEENT: PERRLA, pupils bilaterally equal and reactive, pallors not present Chest: Diffuse bilateral wheezing to auscultation CVS: S1-S2 regular, no murmurs, no tachycardia, no gallops, no rubs Abdomen: Soft, nontender, no organomegaly, bowel sounds present Neuro: No focal deficits, no facial deformity, AO x3, power 5/5 in all limbs Extremities: Minimal pitting edema lower extremities. Urinary Catheter Management: Baptiste: Cath Placed During This Visit: yes Reason for Continuing Indwelling Catheter: Accurate Measurement of Urinary Output in Critically Ill Patients Urinary Catheter Date of Insertion: 01/01/22 Urinary Catheter Time of Insertion: 09:23 Data : 01/02/22 06:10 01/02/22 06:10 Micro: Microbiology 01/02/22 09:00 Gram Stain - Final Sputum - Expectorated Sputum 01/01/22 03:00 Blood Culture - Preliminary Blood NEGATIVE TO DATE 01/01/22 03:30 Blood Culture - Preliminary Blood NEGATIVE TO DATE 01/01/22 07:08 MRSA PCR + Nose A&P Assessment and plan (1) Acute metabolic encephalopathy: Status: Acute (2) Hyponatremia: Status: Acute (3) Acute on chronic respiratory failure with hypoxia and hypercapnia: Status: Acute (4) COPD (chronic obstructive pulmonary disease): Status: Acute (5) Obesity: Status: Acute (6) Hypertension: Status: Acute (7) Congestive heart failure: Status: Acute (8) Aspiration pneumonia: Status: Acute Plan Acute metabolic encephalopathy -This is now improving. Patient is alert awake today. He is conversing in full sentences, replies appropriately though some paranoid thoughts are noted. -Likely multifactorial -From hypercarbia, COPD -From hyponatremia, sodium improving to 124 today. -Normal TSH, normal ammonia. -Urine analysis unremarkable Hyponatremia -Likely secondary to diuresis other possibility include diastolic CHF -Patient was taking Bumex 2.5 mg twice daily at baseline for presumed diastolic CHF -Sodium is improving today at 124. Low serum osmolality noted. Check urine lites. Fluid restriction 1200 cc/day. Lasix 40 mg IV today -Monitor serum sodium every 12 hours Acute hypercarbic respiratory failure -This is much improved -Continue BiPAP at nighttime -Likely secondary COPD -Short course of prednisone 40/3 days -Noted to be wheezing on exam today -DuoNeb -Budesonide -Does have evidence of aspiration pneumonia on CT, currently on antibiotic treatment. Change Zosyn to ceftriaxone, vancomycin given MRSA PCR positive. Added azithromycin for atypical coverage. -Monitor respiratory status closely -CT angio does not show pulmonary embolism, but does show pulmonary vascular congestion -Lower extremity venous duplex without evidence of DVT. Incidental note was made of occluded prior arterial graft. 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 Popliteal artery demonstrating biphasic and elevated systolic velocity suggesting reconstitution of the popliteal artery. This may be followed up as outpatient. History of paranoid schizophrenia, resume depakote,zyprexa and gabapentin for chronic pain Attestations Medical Necessity Statement*: Stable for transfer out of ICU today, continued need for sodium monitoring Coding Level of Care Code Acute International Controller for [place] Diagnoses Acute metabolic encephalopathy G93.41 Hyponatremia E87.1 Acute on chronic respiratory failure with hypoxia and hypercapnia J96.21; J96.22 COPD (chronic obstructive pulmonary disease) J44.9 Obesity E66.9 Hypertension I10 Congestive heart failure I50.9 Aspiration pneumonia J69.0
[2022-01-02] MEDS: FUROsemide 10 mg/mL SDV 2mL 20 MG IVP ×3 (12:37→12:38)
[2022-01-02] MEDS: potassium chloride ER 20 mEq Tablet 40 MEQ PO (12:37)
[2022-01-02] MEDS: cefTRIAXone 1,000 MG in sodium chloride 0.9% (plus) 50 ML 100 MG IV (12:38)
--- NOTE | 2022-01-02 13:06 | PC.NURSE ---
Patient transferred to 2nd floor room 266. Patient resting in bed. Paper chart left with staff at front desk specialist.
[2022-01-02] MEDS: vancomycin 1,250 MG/250 ML PIGGYBACK 250 MG IV ×2 (13:20→20:26)
[2022-01-02 19:53] LABS: Sodium 129 mmol/L (136-145)
[2022-01-02] MEDS: OLANZapine 5 mg TABLET PO (20:25)
[2022-01-02] MEDS: gabapentin 300 mg Capsule 600 MG PO (20:25)
[2022-01-03] VITALS (8 sets, daily range): BP systolic 116–136; BP diastolic 74–82; PULSE 76–86; RESP 16–18; TEMP 36.7–36.9; O2SAT 89–96
[2022-01-03] MEDS: ipratropium-albuterol 3 mL Neb INHALATION ×3 (01:39→11:30)
[2022-01-03 05:01] LABS: Basophils % 0.3 %; Eosinophils # 0.1 10^3/uL (0.0-0.8); Eosinophils % 1.8 %; Hematocrit 48.3 % (42.0-52.0); Hemoglobin 16.4 g/dL (11.7-16.6); Lymphocytes % 15.8 %; Mean Corpuscular Hemoglobin 33.6 pg (28.0-34.0); Mean Platelet Volume 9.2 fL (7.4-10.4); Monocytes # 0.9 10^3/uL (0.2-0.9); Monocytes % 14.7 %; Neutrophils # 4.17 10^3/uL (1.8-7.7); Neutrophils % 67.2 %; Nucleated Red Blood Cells % 0 %; Platelet Count 149 10^3/cmm (130-400); Red Blood Count 4.88 10^6/uL (4.1-5.3); Red Cell Distribution Width 15.7 % (12.1-15.1); White Blood Count 6.2 10^3/uL (4.0-10.0)
[2022-01-03] MEDS: vancomycin 1,250 MG/250 ML PIGGYBACK 250 MG IV (05:09)
[2022-01-03 05:24] LABS: Alanine Aminotransferase 175 U/L (0-41); Albumin Level 3.6 g/dL (3.5-5.2); Alkaline Phosphatase 69 IU/L (40-130); Blood Urea Nitrogen 11 mg/dL (6-20); Calcium 9.2 mg/dL (8.5-10.5); Chloride 84 mmol/L (98-107); Globulin 3.3 g/dL (1.3-4.6); Glomerular Filtration Rate 222.5 mL/min (90-130); Glucose 84 mg/dL (65-115); Magnesium 1.9 mg/dL (1.7-2.3); Osmolality Calculated 269 mOsm/kg (285-295); Phosphorus 3.9 mg/dL (2.5-4.5); Sodium 130 mmol/L (136-145); Total Bilirubin 0.8 mg/dL (0.15-1.2); Total Protein 6.9 g/dL (6.6-8.7)
[2022-01-03 05:39] LABS: Anion Gap 8.8 (5-19); Aspartate Amino Transferase 109 U/L (0-40); Potassium 3.8 mmol/L (3.5-5.1)
[2022-01-03 05:40] LABS: Hepatitis A Antibody IgM Non-Reactive (Nonreactive); Hepatitis B Core AB, Total Non-Reactive (Nonreactive); Hepatitis B Surface AB 3.5 (11.5-1000); Hepatitis B Surface Antigen Non-Reactive (Nonreactive); Hepatitis C Virus Antibody Reactive (Nonreactive)
[2022-01-03 05:58] LABS: Carbon Dioxide 41 mmol/L (22-29)
[2022-01-03] MEDS: budesonide 0.5 mg/2 mL Neb INHALATION (07:48)
[2022-01-03] MEDS: enoxaparin 40 mg/0.4 mL Syringe SUBCUT (08:25)
[2022-01-03] MEDS: pantoprazole 40 mg SDV IVP (08:25)
[2022-01-03] MEDS: divalproex DR 500 mg Tablet PO (08:26)
[2022-01-03] MEDS: predniSONE 20 mg Tablet 40 MG PO (08:26)
[2022-01-03] MEDS: gabapentin 300 mg Capsule 600 MG PO (08:26)
[2022-01-03] MEDS: azithromycin 250 mg Tablet 500 MG PO (08:26)
[2022-01-03] MEDS: acetaminophen 325 mg Tablet 650 MG PO (10:28)
--- NOTE | 2022-01-03 10:40 | PC.CHAP ---
Pastoral Care Encounter/Spiritual Assessment Type of Contact [] Declined silvering department supervisor visit [] Patient/Family/Request visit [] Outpatient visit [] Follow-up visit [] Physician referral [] Code/Alert [x] Routine visit [] Staff referral [] Actively dying [] Patient sleeping [] Family support [] [] Out of room [] Palliative care [] [] Receiving care in room [] Pre-surgical visit [] Trauma [] Long length of stay [] ICU visit [] Other: Relational/Emotional Strength [] Patient feels connected with others/family/visitors/staff [] Distress [] Loneliness/isolation [] Abandonment Spirituality of Patient [x] Person of Annie [] Attends Gnosticism of their Annie [x] Believes in Prayer [] Reads Bible or Restorationist materials [] There are Spiritual issues to be addressed Planner Chief Interventions [x] Prayer [x] Active listening [x] Non-anxious presence x[] Spiritual/emotional support [] Crisis/trauma care [x] Spiritual counseling [] Bereavement support [] Provided bereavement packet [] Provided Bible/devotional materials [] Provided toy/stuffed animal, coloring book to patient or family member [] Provided Communion [] Anointing/[place] [] Salvation [x] Completed spiritual assessment [] Other: Impact on Illness or Injury [] Angry [] Fearful [] Anxious [] Often cries [] Exhaustion [] Unable to work [] Unable to attend yazidi [] Unable to walk/stand [] Unable to read [] Unable to drive [] Unable to eat/drink [] Unable to sleep [] Unable to be with family [] Patient intubated [] Other: Summary Time spent with patient
[2022-01-03] MEDS: gabapentin 100 mg Capsule 200 MG PO (10:44)
[2022-01-03] MEDS: nicotine 21 mg Patch 1 PATCH TRANSDERMA (12:08)
[2022-01-03] MEDS: cefTRIAXone 1,000 MG in sodium chloride 0.9% (plus) 50 ML 100 MG IV (12:08)
[2022-01-03 12:21] LABS: Vancomycin Trough 13.5 ug/mL (10-15)
[2022-01-03 14:24] LABS: SARS Covid-2 Antigen Negative (Negative)
--- NOTE | 2022-01-03 14:44 | PM.DCS ---
Discharge Providers Date of Admission: 01/01/22 05:47 Date of Discharge: January 03, 2022 Attending Provider at Admission: Harpreet Berry MD Attending Provider at Discharge: Benigno Paredes Primary Care Provider: Theodore Navas MD Diagnoses at Discharge Discharge Diagnosis (1) Acute metabolic encephalopathy: Status: Acute (2) Hyponatremia: Status: Acute (3) Acute on chronic respiratory failure with hypoxia and hypercapnia: Status: Acute (4) COPD (chronic obstructive pulmonary disease): Status: Acute (5) Obesity: Status: Acute (6) Hypertension: Status: Acute (7) Congestive heart failure: Status: Acute (8) Aspiration pneumonia: Status: Acute Reason for Visit Reason for Visit: SOB Hospital Course Hospital Course Pleasant 56-year gentleman with history of COPD, smoking, paranoid 60 crania, MDD, HTN, asthma, chronic back pain, anxiety, GERD was admitted due to somnolence/lethargy, confusion, new oxygen requirement, shortness of breath. Symptoms likely multifactorial with COPD exacerbation, hypercapnia, metabolic encephalopathy with pneumonia, hyponatremia. With fluid restriction and careful diuresis sodium has gradually improved, today up to 130. Mental status improved, he is awake and alert. He has been experiencing paranoid ideation which has not been new. He has been having severe cravings for which was started on nicotine patch. For COPD exacerbation and pneumonia was treated with ceftriaxone, azithromycin, vancomycin also due to positive MRSA PCR on nasal swab. Breathing treatments including inhaled steroid. Prednisone. He initially required BiPAP support, but weaned off BiPAP to nasal cannula oxygen after improvement in hypercapnia. He is overall feeling better. Still has been requiring 3-4 L of nasal cannula oxygen. Still having some wheezing. He will continue to completion with antibiotic therapy with Levaquin and Bactrim. Prednisone taper. Breathing treatments. Continue to encourage smoking cessation. After acute episode of illness resolved, please arrange referral for assessment by pulmonary function testing, as well as follow-up with pulmonology regarding honeycombing seen on CT, possibility of pulmonary fibrosis. Continue Lasix as needed for fluid overload/edema. Maintain fluid restriction 1200 mL/day. Do not restrict sodium intake. While in hospital incidentally also noted to have prior occlusion of femoropopliteal bypass with distal reconstitution at the popliteal artery on ultrasound. Please arrange follow-up with vascular surgery. Noted also hepatitis C antibody positive. Hepatitis C RNA was requested and is pending. Please follow-up results, referral for treatment depending on results. Continue follow-up with psychiatry. Physical Exam Narrative: Awake and alert, sitting up in a chair. States he got tired of staying in bed. Const: COMMON NORMALS: alert GENERAL APPEARANCE: cooperative ORIENTATION/CONSCIOUSNESS: Yes awake HENMT: COMMON NORMALS: oropharynx normal Neck/C-Spine: COMMON NORMALS: no JVD Resp: COMMON NORMALS: normal respiratory effort AUSCULTATION: wheezes (mild) Cardio: COMMON NORMALS: no JVD, regular rhythm, S1 normal heart sound present, S2 normal heart sound present and No murmurs present (Cardio) RHYTHM: regular rhythm HEART SOUNDS: S1 normal heart sound present and S2 normal heart sound present GI: COMMON NORMALS: Normal to inspection, nondistended, normoactive bowel sounds present, Soft to palpation and non-tender PALPATION: Yes Soft to palpation Extremity: COMMON NORMALS: no joint enlargement and no pedal edema Neuro: COMMON NORMALS: moves all extremities SENSORIUM/ORIENTATION: Yes alert Skin: COMMON NORMALS: no rashes or lesions noted GENERAL SKIN EXAM: no rashes or lesions noted Urinary Catheter Management: Baptiste: Cath Placed During This Visit: yes, but has since been removed by the nurse Reason for Continuing Indwelling Catheter: Decision to DC Catheter Urinary Catheter Date of Insertion: 01/01/22 Urinary Catheter Time of Insertion: 09:23 Date Urinary Catheter Removed: 01/03/22 Time Urinary Catheter Discontinued: 13:45 Discharge Data Studies Completed and Pending Completed Studies During Hospitalization Category Date Time Status CT head wo con* [id number] Stat Cat Scan 01/01/22 03:19 Completed CTA chest [CT angio chest PE protcl [id number]] Stat Cat Scan 01/01/22 03:43 Completed XR chest 1V portable [id number] Stat Exams 01/01/22 02:52 [place] [id number] Routine Ultrasound 01/01/22 [place] [id number] Stat Ultrasound 01/01/22 06:05 Completed CV. echo complete* [id number] Stat Ultrasound 01/01/22 06:05 Completed Pending at discharge Category Date Time Status Blood Culture Stat Lab 01/01/22 03:00 Results Complete Blood Count w/Auto AM LABS Lab 01/04/22 04:00 Ordered Comprehensive Metabolic Panel AM LABS Lab 01/04/22 04:00 Ordered Hepatitis C RNA Viral Load Qnt Routine Lab 01/03/22 05:40 Received Magnesium AM LABS Lab 01/04/22 04:00 Ordered Phosphorus AM LABS Lab 01/04/22 04:00 Ordered Sodium Q12H Lab 01/03/22 16:30 Ordered Sputum Culture and Gram Stain Stat Lab 01/02/22 09:00 Results Urine Lytes [Urine Random Lytes] Routine Lab 01/02/22 17:46 Ordered Radiology Impressions Duplex Scan Lower Extremity Artery 01/01/22 00:00 IMPRESSION: 1. Occluded left SFA to popliteal artery graft. 2. [place] distal SFA not visualized. 3. Popliteal artery demonstrating biphasic and elevated peak systolic velocity suggesting reconstitution of popliteal artery either through nonvisualized recannulated [place] SFA or collaterals with hemodynamically significant stenosis. Chest X-Ray 01/01/22 02:52 IMPRESSION: 1. Indistinct pulmonary vasculature, patchy interstitial opacities in the right hemithorax and left lower hemithorax , findings that may represent pulmonary edema. Patchy interstitial pneumonitis cannot be entirely excluded. 2. There are some strandy opacities present in the lower hemithoraces that may represent atelectasis as well. Head CT 01/01/22 03:19 IMPRESSION: No acute intracranial abnormality. Chest CTA 01/01/22 03:43 IMPRESSION: 1. No lobar or larger pulmonary artery embolism identified. Limited quality examination. 2. Pulmonary vascular congestion. 3. Honeycombing noted posteriorly in the lower lobes and within the upper lobes right greater than left suggesting pulmonary fibrosis. Ground-glass opacity present in these areas may represent atelectasis, edema, and or pneumonia. This later finding is most pronounced in the right upper lobe. Venous Duplex 01/01/22 06:05 IMPRESSION: No evidence of deep vein thrombosis. Laboratory Results WBC 6.2 10^3/uL (4.0-10.0) 01/03/22 04:28 RBC 4.88 10^6/uL (4.1-5.3) 01/03/22 04:28 Hgb 16.4 g/dL (11.7-16.6) 01/03/22 04:28 Hct 48.3 % (42.0-52.0) 01/03/22 04:28 MCV 99.0 fl (80-94) H 01/03/22 04:28 MCH 33.6 pg (28.0-34.0) 01/03/22 04: MCHC 34.0 g/dL (30.0-36.0) 01/03/22 04:28 RDW 15.7 % (12.1-15.1) H 01/03/22 04:28 Plt Count 149 10^3/cmm (130-400) 01/03/22 04:28 MPV 9.2 fL (7.4-10.4) 01/03/22 04:28 Neut % (Auto) 67.2 % 01/03/22 04:28 Lymph % (Auto) 15.8 % 01/03/22 04:28 [place] % (Auto) 14.7 % 01/03/22 04:28 Eos % (Auto) 1.8 % 01/03/22 04:28 Baso % (Auto) 0.3 % 01/03/22 04:28 Neut # (Auto) 4.17 10^3/uL (1.8-7.7) 01/03/22 04:28 Lymph # (Auto) 1.0 10^3/uL (0.8-4.8) 01/03/22 04:28 [place] # (Auto) 0.9 10^3/uL (0.2-0.9) 01/03/22 04:28 Eos # (Auto) 0.1 10^3/uL (0.0-0.8) 01/03/22 04:28 Baso # (Auto) 0.0 10^3/uL (0.0-0.1) 01/03/22 04:28 Nucleated RBC % (auto) 0 % 01/03/22 04:28 Nucleated RBCs # 0.0 /100WBC 01/03/22 04:28 PT 12.60 SECONDS (12.1-14.9) 01/01/22 08:42 INR 0.91 (0.8-1.2) 01/01/22 08:42 Specimen Type Arterial 01/01/22 14:41 Sample Site Radial, left 01/01/22 14:41 ABG pH 7.46 (7.35-7.45) H 01/01/22 14:41 ABG pCO2 70.5 mmHg (35-45) H* 01/01/22 14:41 ABG pO2 62.6 mmHg (80.0-100.0) L 01/01/22 14:41 ABG HCO3 50.0 mmol/L (22-26) H 01/01/22 14:41 ABG O2 Saturation 93.3 01/01/22 14:41 ABG Base Excess 20.5 mmol/L (-2.0-2.0) H 01/01/22 14:41 Josh Test Pos 01/01/22 14:41 A-a O2 Gradient 18.1 mmHg (5-10) H 01/01/22 14:41 Hematocrit 53.4 % (42-52) H 01/01/22 14:41 Hgb O2 Saturation 88.6 % (95-100) L 01/01/22 14:41 Carboxyhemoglobin 4.4 %THgb (0.4-20.1) 01/01/22 14:41 Methemoglobin 0.5 % (0.4-1.5) 01/01/22 14:41 Total Hemoglobin 17.4 g/dL (14-18) 01/01/22 14:41 Sodium 123.0 mmol/L (131-143) L 01/01/22 14:41 Potassium 3.1 mmol/L (3.5-5.0) L 01/01/22 14:41 Glucose 88.0 mg/dL (70-115) 01/01/22 14:41 Ionized Calcium 1.1 mmol/L (1.1-1.4) 01/01/22 14:41 O2 Delivery Device Bipap 01/01/22 14:41 O2 Liters/Min 2.0 % 01/01/22 02:58 FiO2 40.0 % 01/01/22 14:41 Geothermal Electrical Engineer ID [place] 01/01/22 14:41 Sodium 130 mmol/L (136-145) L 01/03/22 04:28 Potassium 3.8 mmol/L (3.5-5.1) 01/03/22 04:28 Chloride 84 mmol/L (98-107) L 01/03/22 04:28 Carbon Dioxide 41 mmol/L (22-29) H 01/03/22 04:28 Anion Gap 8.8 (5-19) 01/03/22 04:28 BUN 11 mg/dL (6-20) 01/03/22 04:28 Creatinine 0.4 mg/dL (0.7-1.2) L 01/03/22 04:28 GFR Calculation 222.5 mL/min (90-130) H 01/03/22 04:28 Glucose 84 mg/dL (65-115) 01/03/22 04:28 POC Glucose 88 mg/dL (70-110) 01/01/22 10:45 Estimat Average Glucose 114 01/01/22 02:44 Hemoglobin A1c 5.6 % (4.0-6.0) 01/01/22 02:44 Calculated Osmolality 269 mOsm/kg (285-295) L 01/03/22 04:28 Lactic Acid 1.2 mmol/L (0.5-2.2) 01/01/22 02:44 Calcium 9.2 mg/dL (8.5-10.5) 01/03/22 04:28 Phosphorus 3.9 mg/dL (2.5-4.5) 01/03/22 04:28 Magnesium 1.9 mg/dL (1.7-2.3) 01/03/22 04:28 Total Bilirubin 0.8 mg/dL (0.15-1.2) 01/03/22 04:28 AST 109 U/L (0-40) H 01/03/22 04:28 ALT 175 U/L (0-41) H 01/03/22 04:28 Alkaline Phosphatase 69 IU/L (40-130) 01/03/22 04:28 Ammonia 43 umol/L (16-60) 01/01/22 10:10 Troponin T Baseline 16 ng/L (0-15) H 01/01/22 02:44 Troponin T 120 Minute 14.26 ng/L (0-15) 01/01/22 05:05 Delta Troponin T -1.74 ABS# (0-10) L 01/01/22 05:05 Troponin T Hi Sens 6Hr 16.62 ng/L (0-15) H 01/01/22 08:42 Troponin T Hi Sens 6Hr Delta 0.62 ng/L (0-12) 01/01/22 08:42 C-Reactive Protein 5.6 mg/L (0.0-4.9) H 01/01/22 05:05 NT-Pro-B Natriuret Pep 32 pg/mL (0-125) 01/02/22 06:10 Total Protein 6.9 g/dL (6.6-8.7) 01/03/22 04:28 Albumin 3.6 g/dL (3.5-5.2) 01/03/22 04:28 Globulin 3.3 g/dL (1.3-4.6) 01/03/22 04:28 Triglycerides 93 mg/dL (0-150) 01/01/22 05:05 Cholesterol 116 mg/dL (0-200) 01/01/22 05:05 LDL Cholesterol, Calc 61 mg/dL (50-129) 01/01/22 05:05 HDL Cholesterol 36 mg/dL (60-100) L 01/01/22 05:05 LDL/HDL Ratio 1.69 RATIO (0.00-3.22) 01/01/22 05:05 Cholesterol/HDL Ratio 3.22 mg/dL (1.0-5.00) 01/01/22 05:05 Procalcitonin 0.02 ng/mL (0-0.5) 01/01/22 05:05 TSH 1.28 uIU/mL (0.27-4.20) 01/01/22 05:05 Urine Color Straw (Yellow) 01/01/22 08:30 Urine Appearance Clear (CLEAR) 01/01/22 08:30 Urine pH 6.5 (5-7) 01/01/22 08:30 Ur Specific [place] 1.005 (1.005-1.030) 01/01/22 08:30 Urine Protein Neg (Negative) 01/01/22 08:30 Urine Glucose (UA) Norm (Normal) 01/01/22 08:30 Urine Ketones Negative (Negative) 01/01/22 08:30 Urine Blood Neg (Negative) 01/01/22 08:30 Urine Nitrate Negative (Negative) 01/01/22 08:30 Urine Bilirubin Neg (Negative) 01/01/22 08:30 Urine Urobilinogen Norm mg/dL (Negative) 01/01/22 08:30 Ur Leukocyte Esterase Negative (Negative) 01/01/22 08:30 Vancomycin Trough 13.5 ug/mL (10-15) 01/03/22 11:38 Coronavirus 229E (PCR) Not detected (NOT DETECT) 01/01/22 07:08 Hepatitis A IgM Ab Non-reactive (Nonreactive) 01/03/22 04:28 Hep Bs Antigen Non-reactive (Nonreactive) 01/03/22 04:28 Hep Bs Antibody 3.5 (11.5-1000) L 01/03/22 04:28 Hep B Core Total Ab Non-reactive (Nonreactive) 01/03/22 04:28 Hepatitis C Antibody Reactive (Nonreactive) H 01/03/22 04:28 SARS-CoV-2 (PCR) Not detected (NOT DETECT) 01/01/22 07:08 SARS-CoV-2 Ag (Rapid) Negative (Negative) 01/03/22 12:33 Vitals Last Vital Signs Temp 98.5 F 01/03/22 12:00 Pulse 85 01/03/22 12:00 Resp 16 01/03/22 12:00 BP 116/74 01/03/22 12:00 Pulse Ox 89 L 01/03/22 12:00 O2 Del Method 01/03/22 12:00 O2 Flow Rate 4 01/03/22 11:32 FiO2 50 01/02/22 03:15 Discharge Plan Discharge Patient Disposition: Xfer SNF Condition: Stable Prescriptions: New prednisone 20 mg Tablet 40 mg PO DAILY Qty: 10 0RF Rx Instructions: 2 tab for 3 days, then 1 tab for 3 days, then 1/2 tab for 2 days. nicotine 14 mg/24 hr patch 24 hour 1 patch transdermal DAILY Qty: 28 3RF levofloxacin 750 mg tablet 750 mg PO DAILY 5 Days Qty: 5 0RF Bactrim DS 800-160 mg tablet 1 tab PO Q12H 5 Days Qty: 10 0RF furosemide 20 mg tablet 20 mg PO DAILY PRN (Reason: edema) Qty: 90 0RF Continued acetaminophen 325 mg Tablet 325 mg PO Q6H PRN (Reason: Pain) gabapentin 600 mg Tablet 600 mg PO BEDTIME naproxen 375 mg Tablet 375 mg PO DAILY PRN (Reason: Pain) albuterol sulfate 2.5 mg /3 mL (0.083 %) Solution For Nebulization 2.5 mg INHALATION Q4H PRN (Reason: Shortness Of Breath) cetirizine 10 mg Tablet 10 mg PO DAILY sumatriptan succinate 25 mg Tablet 25 mg PO Q8H PRN (Reason: Migraine Headache) Rx Instructions: do not exceed 8 doses per 24 hrs Senna-S 8.6-50 mg Tablet 1 tab-cap PO BEDTIME olanzapine 10 mg Tablet 5 mg PO BEDTIME divalproex 500 mg Tablet,Delayed Release (Dr/Ec) 500 mg PO BID spironolactone 25 mg Tablet 12.5 mg PO DAILY Milk of Magnesia 400 mg/5 mL Suspension 30 ml PO DAILY PRN (Reason: Constipation) Vitamin B-12 500 mcg Tablet 500 mcg PO DAILY Oyster Shell Calcium 500 mg calcium (1,250 mg) Tablet 500 mg PO DAILY baclofen 10 mg Tablet 10 mg PO Q8H PRN (Reason: Pain) amlodipine 10 mg Tablet 10 mg PO DAILY pantoprazole 40 mg Tablet,Delayed Release (Dr/Ec) 40 mg PO DAILY ibuprofen 400 mg Tablet 400 mg PO Q12H PRN (Reason: Pain) docusate sodium 100 mg Capsule 100 mg PO BID azelastine 137 mcg (0.1 %) Aerosol,[place] 1 spray INTRANASAL BID Rx Instructions: administer into each nostril Ventolin HFA 90 mcg/actuation Hfa Aerosol Inhaler 2 puff INHALATION Q4H PRN (Reason: Shortness Of Breath) Lexapro 10 mg Tablet 10 mg PO DAILY guaifenesin 400 mg Tablet 400 mg PO BID lactulose 10 gram/15 mL Solution See Rx Instructions .ROUTE .COMPLEX Rx Instructions: 10 g orally every Monday, , Monday diclofenac sodium 1 % Gel 2 g TOPICAL BEDTIME Rx Instructions: apply to single elbow, wrist or hand; for hand includes palm/fingers/back of hand melatonin 5 mg Tablet 5 mg PO BEDTIME M- Plus 27 mg iron- 1 mg Tablet 1 tab PO DAILY camphor-menthol 0.2-3.5 % Gel 1 applic TOPICAL DAILY PRN (Reason: Pain) potassium chloride 20 mEq Tablet Extended Release 20 meq PO DAILY Invega Trinza 819 mg/2.63 mL Syringe 819 mg IM DAILY Changed gabapentin 400 mg Capsule 200 mg PO BID Qty: 1 0RF Discontinued hydrochlorothiazide 12.5 mg Tablet 12.5 mg PO DAILY Discharge Orders: Discharge Order (Routine); Ordered 01/03/22 Ordered By: Benigno Paredes Referrals: [facility] [Outside] Theodore Navas MD [Primary Care Provider] - 4-7 days Discharge Diet: Cardiac Discharge Activity: Increase activity as tolerated Patient Instructions: Hyponatremia, Aspiration Pneumonia (GEN), COPD (Chronic Obstructive Pulmonary Disease) (GEN), Aspiration Precautions (GEN), Opioid Safety Activity Restrictions/Additional Instructions: Please recheck sodium in 3-4 days to follow-up for hyponatremia. Do not restrict sodium intake. Maintain fluid restriction 1200 mL/day. Continue Lasix. Continue oxygen 4 L nasal cannula, titrate down as tolerating. Please continue breathing treatments for COPD/wheezing. Complete prednisone taper. Complete antibiotic course for aspiration pneumonia. Maintain aspiration precautions. After recovery from acute illness please arrange for pulmonary function testing and follow-up with pulmonology regarding honeycombing seen on CT, possible pulmonary fibrosis. Please set up follow-up with vascular surgery regarding incidentally noted occluded femoropopliteal bypass with distal reconstitution at the popliteal artery on ultrasound. Continue follow-up with psychiatry. Hepatitis C antibody positive. HCV RNA had been sent and is pending. Please follow-up results, arrange follow-up for treatment accordingly. Discharge Attestations Time Spent in Discharge Care*: greater than 30 min Quality Metrics Clinical Quality Measures [ No reported AMI, CVA or VTE this stay] Coding Level of Care Code Acute g DC note Diagnoses Acute metabolic encephalopathy G93.41 Hyponatremia E87.1 Acute on chronic respiratory failure with hypoxia and hypercapnia J96.21; J96.22 COPD (chronic obstructive pulmonary disease) J44.9 Obesity E66.9 Hypertension I10 Congestive heart failure I50.9 Aspiration pneumonia J69.0
[2022-01-05 09:23] LABS: HEP C RNA Viral Load Quant 1070000 IU/mL (NOT DETECTED); HEP C RNA Viral Load Quant 6.03 Log IU/mL (NOT DETECTED)
== END 2022-01-03 15:00 | disposition home or self-care (01) | DRG 177 ==
LOC: ER 05:46 → ICU 06:11 → MEDSURG 01-02 12:50
PROVIDERS: Student in an Organized Health Care Education/Training Program; Admitting Provider Family Medicine; Emergency Provider Emergency Medicine; PCP Internal Medicine; Visit Provider Internal Medicine
DX: J69.0 Pneumonitis due to inhalation of food and vomit (principal); G93.41 Metabolic encephalopathy; J96.22 Acute and chronic respiratory failure with hypercapnia; J96.21 Acute and chronic respiratory failure with hypoxia; F20.0 Paranoid schizophrenia; J44.0 Chronic obstructive pulmonary disease with (acute) lower respiratory infection; T82.818A Embolism due to vascular prosthetic devices, implants and grafts, initial encounter; J44.1 Chronic obstructive pulmonary disease with (acute) exacerbation; I50.32 Chronic diastolic (congestive) heart failure; E87.1 Hypo-osmolality and hyponatremia; Y81.8 Miscellaneous general- and plastic-surgery devices associated with adverse incidents, not elsewhere classified; F17.210 Nicotine dependence, cigarettes, uncomplicated; I11.0 Hypertensive heart disease with heart failure; G89.29 Other chronic pain; M54.9 Dorsalgia, unspecified; F41.9 Anxiety disorder, unspecified; K21.9 Gastro-esophageal reflux disease without esophagitis; F17.200 Nicotine dependence, unspecified, uncomplicated; E66.9 Obesity, unspecified; Z68.39 Body mass index [BMI] 39.0-39.9, adult; B95.62 Methicillin resistant Staphylococcus aureus infection as the cause of diseases classified elsewhere; J84.10 Pulmonary fibrosis, unspecified; Z79.51 Long term (current) use of inhaled steroids; B19.20 Unspecified viral hepatitis C without hepatic coma
CPT/HCPCS: 36415; 36416; 36600; 51702; 70450; 71045; 71275; 80051; 80053; 80061; 80202; 81003; 82140; 82330; 82803; 82805; 82962; 83036; 83605; 83735; 83880; 84100; 84145; 84295; 84443; 84484; 85025; 85610; 86140; 86705; 86706; 86709; 86803; 87040; 87070; 87205; 87340; 87426; 87522; 87635; 87641; 93005; 93306; 93926; 93970; 94640; 94660; 96361; 96365; 96366; 96372; 99285; C9113; J0696; J1650; J1940; J2543; J3370; J3475; J3480; J7512; J7626; Q0144; Q9967

== ENCOUNTER → 2022-03-03 09:25 | Outpatient (BNVA) | payer MEDICARE, MEDICAID, SELFPAY | PROVIDERS: PCP Internal Medicine; Visit Provider Student in an Organized Health Care Education/Training Program | DX: B19.20 Unspecified viral hepatitis C without hepatic coma (principal) | CPT/HCPCS: 36415; 85025; 87806; 87902; 99204; 99205 ==

== ENCOUNTER → 2022-04-19 14:03 | Outpatient (BNVA) | payer MEDICARE, MEDICAID, SELFPAY | PROVIDERS: PCP Internal Medicine; Visit Provider Internal Medicine | DX: I73.9 Peripheral vascular disease, unspecified (principal); I11.0 Hypertensive heart disease with heart failure; I50.9 Heart failure, unspecified; E66.9 Obesity, unspecified; Z68.39 Body mass index [BMI] 39.0-39.9, adult; J44.9 Chronic obstructive pulmonary disease, unspecified; F17.200 Nicotine dependence, unspecified, uncomplicated | CPT/HCPCS: 99204 ==

== ENCOUNTER 2022-05-18 08:44 | Outpatient (CLI) | payer MEDICARE, MEDICAID, SELFPAY ==
--- NOTE | 2022-05-18 09:15 | US_ITS ---
WS: [id number] Right upper quadrant ultrasound, 05/18/2022 Clinical Data: hepatitis C with transaminitis Comparison: None. Findings: The gallbladder is absent. The common bile duct is 0.2 cm and there are no intrahepatic ductal abnormalities. Liver shows no cysts, masses or dilated intrahepatic ducts. The liver shows heterogeneous echotexture with enlargement measuring 18.79 cm. The portal vein shows normal flow. The pancreas is not obscured by overlying bowel gas and no cyst, pseudocyst, or evidence of pancreati tis is noted. Right kidney measures 13.8 cm and no cyst, masses or hydronephrosis can be seen. The aorta measures 2.9 cm in greatest dimension and the inferior vena cava measures 2.72 cm. US/US liver [id number] Impression: 1. Absent gallbladder. 2. Hepatomegaly with heterogeneous echotexture of the liver.
== END 2022-05-18 08:45 | disposition home or self-care (01) ==
LOC: RAD 08:44
PROVIDERS: Visit Provider Student in an Organized Health Care Education/Training Program
DX: B19.20 Unspecified viral hepatitis C without hepatic coma (principal); Z90.49 Acquired absence of other specified parts of digestive tract
CPT/HCPCS: 76705